=== PATIENT | female | born 1990 | race African-American/Black ===

== ENCOUNTER 2020-02-06 04:41 | Day surgery (SDC) | payer BC ==
[2020-02-05 12:53] VITALS: BMI 27.6
--- OUTSIDE RECORDS SUMMARY | 2020-02-06 04:45 | XMS ---
:1990 Author Organization [facility] Support Name Relationship Address Phone [facility] Unavailable [address] [place] [address] SLY GUTIERREZ [address] [phone] [place] [address] Re-disclosure Warning The records that you are about to access may contain information from federally- assisted alcohol or drug abuse programs. If such information is present, then the following federally mandated warning applies: This information has been disclosed to you from records protected by federal confidentiality rules (42 CFR part 2). The federal rules prohibit you from making any further disclosure of this information unless further disclosure is expressly permitted by the written consent of the person to whom it pertains or as otherwise permitted by 42 CFR part 2. A general authorization for the release of medical or other information is NOT sufficient for this purpose. The Federal rules restrict any use of the information to criminally investigate or prosecute any alcohol or drug abuse patient.The records that you are about to access may contain highly sensitive health information, the redisclosure of which is protected by Article 27-F of the [facility] Public Health law. If you continue you may haveaccess to information: Regarding HIV / AIDS; Provided by facilities licensed or operated by the [facility] Office of Mental Health; or Provided by the [facility] Office for People With Developmental Disabilities. If such information is present, then the following [facility] mandated warning applies: This information has been disclosed to you from confidential records which are protected by state law. State law prohibits you from making any further disclosure of this information without the specific written consent of the person to whom it pertains, or as otherwise permitted by law. Any unauthorized further disclosure in violation of state law may result in a fine or custodial sentence or both. A general authorization for the release of medical or other information is NOT sufficient authorization for further disclosure. Encounters Encounter Providers Location Date Indications Data Source(s ) Outpatient 04/11/2019 07:08:00 [facility] ([facility]) Outpatient 04/10/2019 06:35:00 [facility] ([facility]) Insurance Providers Payer name Policy type Policy ID Covered Covered constitution party's Policy P chi / Coverage constitution party ID relationship to [facility] [id number] SP [id number] [facility] 72 Results ID Date Data Source [id number] 02/02/2020 12:40:00 PM EDT [facility] Name Value Range Interpretation Description Data Sup porting Code Source(s) Document(s ) SARS [facility] coronavirus 2 RNA This lab was ordered by [facility] and reported by [facility]. Procedure
[2020-02-06] MEDS ORDERED: DEXAMETHASONE SOD PHOSPHATE 4 MG/1 ML VIAL ONE ×2 (08:29→09:20)
[2020-02-06] MEDS ORDERED: LIDOCAINE HCL 1%, 10 MG/ML (20ML VIAL) ONE ×2 (08:29→09:20)
[2020-02-06] MEDS ORDERED: BENZOIN/ALOE VERA/STORAX/TOLU 58 ML BOTTLE ONE (08:29)
[2020-02-06] MEDS ORDERED: BUPIVACAINE HCL 50 ML ONE (08:29)
[2020-02-06] MEDS ORDERED: MIDAZOLAM HCL 2 MG/2 ML SINGLE DOSE VIAL ONE (08:39)
[2020-02-06] MEDS ORDERED: KETOROLAC TROMETHAMINE 30 MG/1 ML VIAL ONE (08:39)
[2020-02-06] MEDS ORDERED: ceFAZolin SODIUM 1 GM VIAL ONE (08:39)
[2020-02-06] MEDS ORDERED: PROPOFOL 20 ML ONE ×2 (08:39)
[2020-02-06] MEDS ORDERED: BUPIVACAINE HCL 100 ML ONE (09:20)
[2020-02-06] MEDS ORDERED: ceFAZolin SODIUM 1 GM VIAL IVPB ONE (09:45)
[2020-02-06] MEDS ORDERED: BUPIVACAINE HCL/PF 0.5% (5 MG/ML) 30 ML VIAL IJ ONE (10:05)
[2020-02-06] MEDS ORDERED: LIDOCAINE HCL 1%, 10 MG/ML (20ML VIAL) INF ONE (10:05)
[2020-02-06] MEDS ORDERED: DEXAMETHASONE SOD PHOSPHATE 4 MG/1 ML VIAL IVPUSH ONE (10:08)
--- NOTE | 2020-02-06 10:18 | OP ---
Operative Note - Note: Operative Date: 02/06/20 Pre-Operative Diagnosis: Semi-rigid long hammer toe 2nd right foot Operation: Arthroplasty PIPJ 2nd toe right Findings: Hypertrophic bone and soft tissue Post-Operative Diagnosis: Same as Pre-op Surgeon: Haroon Lozada Qm Nurse: Airam Sellers Anesthesia: Local, MAC Specimens Removed: bone and soft tissue Estimated Blood Loss (mls): 1 Operative Report Dictated: Yes
[2020-02-06] MEDS ORDERED: ONDANSETRON 4 MG/2 ML VIAL IVPUSH PRN (10:22)
[2020-02-06] MEDS ORDERED: LACTATED RINGERS SOLUTION 1,000 ML IV SCH (10:30)
[2020-02-06 12:24] VITALS: BP 129/82; PULSE 64; TEMP 97.6
--- NOTE | 2020-02-07 08:15 | OP ---
DATE OF OPERATION: 02/06/2020 SURGEON: Airam Sellers DPM CO-SURGEON: Haroon Lozada DPM CARE TEAM ASSISTANT: Darek Hauser DPM, PGY-3 PREPROCEDURE DIAGNOSIS: Hammertoe deformity 2nd digit, right foot. POSTPROCEDURE DIAGNOSIS: Hammertoe deformity 2nd digit, right foot. PROCEDURE: 1. Arthroplasty 2nd digit, right foot. 2. Postoperative injection. PATHOLOGY: Bone and soft tissue. ANESTHESIA: Local with MAC. HEMOSTASIS: Pneumatic ankle tourniquet at 250 mmHg. ESTIMATED BLOOD LOSS: Minimal. MATERIALS: Betadine-soaked Adaptic, 4 x 4 gauze, Kerlix, Erik, 3-0 Vicryl and 4- 0 nylon. INJECTABLES: Preop 6 mL total of a 1:1 mixture of lidocaine 1% plain and Marcaine 0.5% plain. Postoperatively 5 mL total of 8:2 mix of Marcaine 0.5% plain and 4 mg dexamethasone. CONDITION: Stable. COMPLICATIONS: None. DESCRIPTION OF PROCEDURE: The patient was brought to the operating room and placed on the operating room table in the supine position. After appropriate timeout procedures, the administration of preoperative antibiotic and identification of the procedures, MAC anesthesia was administered by the anesthesia team. After adequate sedation, a local anesthetic block was administered to the right foot utilizing a 1:1 mixture of lidocaine 1% plain and 0.5% Marcaine plain for a total of 6 mL being used. A well-padded pneumatic ankle tourniquet was then applied to the right ankle. The right foot was then prepped and draped in usual aseptic manner. An Esmarch bandage was then utilized to exsanguinate the patient's right foot and the tourniquet was inflated to 250 mmHg. Surgery began in the following manner: Attention was directed to the 2nd digit of the right foot where 2 linear converging semi-elliptical longitudinal incisions were made dorsal to the proximal interphalangeal joint. A wedge of skin removed The incision was deepened through the subcutaneous tissues with care being taken to identify and retract all vital neurovascular structures. All bleeders were cauterized and ligated as necessary. At this time a transverse tenotomy and capsulotomy was performed to the proximal interphalangeal joint. The head of the proximal phalanx was then freed of its capsular and ligamentous attachments. The head was found to be hypertrophied on its dorsomedial and lateral aspects. Thus, utilizing an oscillating bone saw the head of the proximal phalanx was resected and then passed from the operative site. At this time all deformities were noticed to be reduced and the digit to be laid in a more corrected position. The surgical site was irrigated with normal saline bacitracin solution. The tendon was reapproximated with 3.0 Vicryl and the skin was reapproximated with 4-0 nylon. A postoperative injection was administered to the right foot utilizing 5 mL of an 8:2 mix of Marcaine 0.5% plain and dexamethasone 4 mg. Surgical site was dressed with Betadine-soaked Adaptic, a sterile 4 x 4 gauze, Choco and Erik. The pneumatic ankle tourniquet was then deflated and a prompt hyperemic response was noted to all digits of the right foot. The patient tolerated the procedure and anesthesia well and left the operating room to the recovery room with all vital signs stable and neurovascular status intact and capillary refill time was less than 3 seconds to all digits of the right foot. NORBERT Polanco/[id number] TEVIN
--- NOTE | 2020-02-07 17:47 | PATH ---
Surgical Pathology Report Patient Name: EVELYN GUTIERREZ Med. Rec. #: [id number] /Age/Gender: 1990 (Age: 29) / F Account: [id number] Location: [facility] Taken: 02/06/2020 Received: 02/06/2020 Reported: 02/07/2020 Physicians: Airam Sellers DPM Specimen(s) Received SKIN AND BONE 2ND TOE RIGHT Clinical History Hammertoe second digit right foot Final Diagnosis SKIN AND BONE SECOND TOE, RIGHT, EXCISION: PORTION OF BONE WITH FATTY MARROW SHOWING FOCAL DEGENERATIVE CHANGE. SEPARATE SEGMENT OF SKIN WITH NO SIGNIFICANT PATHOLOGIC CHANGE. Electronically Signed Elier Carrion M.D. Gross Description Received in formalin labeled "skin and bone second toe right," is a 1.1 x 0.6 x 0.6 cm jeong-yellow portion of bone. Also received within the same container is a 1.6 x 0.5 cm jeong, elliptical, unoriented portion of skin. Adolescent Medicine Specialist sections are submitted in one cassette, following decalcification. /02/06/2020 saudi/02/06/2020
== END 2020-02-06 12:50 | disposition home or self-care (01) ==
LOC: JASU-SURG 04:41
PROVIDERS: ATTEND Podiatrist Foot Surgery
PROC: 0QBQ0ZZ Excision of Right Toe Phalanx, Open Approach (ICD-10-PCS; principal; 2020-02-06 10:00)
DX: M20.41 Other hammer toe(s) (acquired), right foot (principal)
CPT/HCPCS: 73630-TC-RT-FY; 84703; 88304-TC; 88311-TC; 94760

== ENCOUNTER 2020-02-22 04:58 | Day surgery (SDC) | payer BC ==
--- OUTSIDE RECORDS SUMMARY | 2020-02-06 08:24 | XMS ---
:1990 Author Organization [facility] Support Name Relationship Address Phone [facility] Unavailable [address] [place] [address] SLY GUTIERREZ [address] [facility] [address] [place] [address] Re-disclosure Warning The records that you are [...] is protected by Article 27-F of the [facility] Public Health law. If you continue you may haveaccess to information: Regarding HIV / AIDS; Provided by facilities licensed or operated by the [facility] Office of Mental Health; or Provided by the [facility] Office for People With Developmental Disabilities. If such information is present, then the following [facility] mandated warning applies: This information has [...] law may result in a fine or chcf sentence or both. A general authorization for the release of medical or other information is NOT sufficient authorization for further disclosure. Encounters Encounter Providers Location Date Indications Data Source(s ) Outpatient 04/11/2019 07:08:00 [facility] ([facility]) Outpatient 04/10/2019 06:35:00 [facility] ([facility]) Insurance Providers Payer name Policy type Policy ID Covered Covered libertarian's Policy P chi / Coverage libertarian ID relationship to [facility] Inf [facility]mation [facility] [id number] SP [id number] [facility] 72 Results ID Date Data Source [id number] 02/02/2020 12:40:00 PM EDT [facility] Name Value Range Interpretation Description Data Sup porting Code Source(s) Document(s ) SARS [facility] coronavirus 2 RNA This lab was ordered by [facility] and reported by [facility]. Procedure
[2020-02-09 17:26] VITALS: BMI 27.6
[~2020-02-22 04:58] MED LIST: BACITRACIN 50,000 UNITS VIAL TP ONE; BUPIVACAINE HCL/PF 0.5% (5MG/ML) 10 ML VIAL IJ ONE; DEXAMETHASONE SOD PHOSPHATE 4 MG/1 ML VIAL NR ONE; LIDOCAINE HCL 1%, 10 MG/ML (20ML VIAL) NR ONE
--- OUTSIDE RECORDS SUMMARY | 2020-02-22 05:01 | XMS ---
:1990 Author Organization [facility] Support Name Relationship Address Phone [facility] Unavailable [address] [phone] [place] [address] SLY GUTIERREZ [address] [place] [address] Re-disclosure Warning The records that you are [...] is protected by Article 27-F of the [facility] Public Health law. If you continue you may haveaccess to information: Regarding HIV / AIDS; Provided by facilities licensed or operated by the [facility] Office of Mental Health; or Provided by the [facility] Office for People With Developmental Disabilities. If such information is present, then the following [facility] mandated warning applies: This information has been [...] law may result in a fine or intermediate sentence or both. A general authorization for [...] relationship to [facility] Inf [facility]mation [facility] [id number] SP [id number] [facility] 72 Results ID Date Data Source [id number] 02/02/2020 12:40:00 PM EDT [facility] Name Value Range Interpretation Description Data Sup porting Code Source(s) Document(s ) SARS [facility] coronavirus 2 RNA This lab was ordered by [facility] and reported by [facility]. Procedure
[2020-02-22] MEDS ORDERED: LIDOCAINE HCL 1%, 10 MG/ML (20ML VIAL) ONE (07:30)
[2020-02-22] MEDS ORDERED: DEXAMETHASONE SOD PHOSPHATE 4 MG/1 ML VIAL ONE ×2 (07:30→07:48)
[2020-02-22] MEDS ORDERED: BUPIVACAINE HCL 50 ML ONE ×2 (07:30→08:40)
[2020-02-22] MEDS ORDERED: MIDAZOLAM HCL 2 MG/2 ML SINGLE DOSE VIAL ONE (07:47)
[2020-02-22] MEDS ORDERED: PROPOFOL 20 ML ONE (07:47)
[2020-02-22] MEDS ORDERED: LIDOCAINE HCL/PF 2% SDV 5ML VIAL ONE (07:48)
[2020-02-22] MEDS ORDERED: ceFAZolin SODIUM 1 GM VIAL ONE (07:48)
[2020-02-22] MEDS ORDERED: KETOROLAC TROMETHAMINE 30 MG/1 ML VIAL ONE (07:48)
[2020-02-22] MEDS ORDERED: LIDOCAINE HCL 1%, 10 MG/ML (20ML VIAL) NR ONE ×2 (08:08→08:28)
[2020-02-22] MEDS ORDERED: BUPIVACAINE HCL/PF 0.5% (5MG/ML) 10 ML VIAL NR ONE (08:25)
[2020-02-22] MEDS ORDERED: BACITRACIN 50,000 UNITS VIAL TP ONE (08:50)
[2020-02-22] MEDS ORDERED: DEXAMETHASONE SOD PHOSPHATE 4 MG/1 ML VIAL NR ONE (09:01)
[2020-02-22] MEDS ORDERED: BUPIVACAINE HCL/PF 0.5% (5MG/ML) 10 ML VIAL IJ ONE (09:01)
[2020-02-22] MEDS ORDERED: oxyCODONE HCL 5 MG TABLET PO PRN ×2 (09:24)
[2020-02-22] MEDS ORDERED: ONDANSETRON 4 MG/2 ML VIAL IVPUSH PRN (09:24)
[2020-02-22] MEDS ORDERED: LACTATED RINGERS SOLUTION 1,000 ML IV SCH (09:30)
[2020-02-22 10:06] VITALS: TEMP 98.2
[2020-02-22 12:10] VITALS: BP 112/70; PULSE 66
--- NOTE | 2020-02-22 17:45 | OP ---
Operative Note - Note: Operative Date: 02/22/20 Pre-Operative Diagnosis: Hammer toe left 2nd toe Operation: Arthroplasty 2nd toe left Findings: hypertrophic bone and soft tissue Post-Operative Diagnosis: Same as Pre-op Surgeon: Haroon Lozada Waste Chopper: Airam Sellers Anesthesia: Local, MAC Specimens Removed: bone and soft tissue Estimated Blood Loss (mls): 2 Operative Report Dictated: Yes
--- NOTE | 2020-02-23 19:53 | PATH ---
Surgical Pathology Report Patient Name: EVELYN GUTIERREZ [facility]. Rec. #: [id number] /Age/Gender: 1990 (Age: 29) / F Account: [id number] Location: [facility] Taken: 02/22/2020 Received: 02/22/2020 Reported: 02/23/2020 Physicians: NORBERT Polanco DPM Specimen(s) Received BONE AND SKIN LEFT SECOND DIGIT FOOT Clinical History Hammertoe deformity left second digit Final Diagnosis BONE AND SKIN, SECOND DIGIT, FOOT, LEFT, HAMMERTOE CORRECTION: BONE WITH FATTY MARROW. SKIN WITHOUT SIGNIFICANT PATHOLOGIC FINDINGS. Electronically Signed Trinity Yanez M.D. Gross Description Received in formalin labeled "bone and skin left second digit foot" is an ellipse of jeong skin measuring 1.5 x 0.7 cm excised to a depth of 0.3 cm. No surface lesions are identified. Also received is a fragment of white-jeong bone measuring 1.0 x 0.5 x 0.5 cm. Both specimens are bisected and entirely submitted in one cassette after decalcification. MLSZ/02/23/2020 sanml/02/23/2020
--- NOTE | 2020-02-26 11:21 | OP ---
DATE OF OPERATION: 02/22/2020 PREOPERATIVE DIAGNOSIS: Hammertoe, left foot 2nd toe. POSTOPERATIVE DIAGNOSIS: Hammertoe, left foot 2nd toe. OPERATION: Proximal interphalangeal joint arthroplasty of digit, left. ANESTHESIA: Local with IV sedation. SURGEON: Airam Sellers DPM DOORS PREFITTER: Haroon Lozada DPM HEMOSTASIS: Pneumatic ankle tourniquet. ESTIMATED BLOOD LOSS: Minimal. MATERIALS: Vicryl and nylon suture. PATHOLOGY: Bone. DESCRIPTION OF OPERATION: The patient was brought to the operating room and placed on the operating table in the supine position. A pneumatic ankle tourniquet was then placed on the patient's left ankle. Following IV sedation, local anesthesia was obtained utilizing 5 mL of 0.5% Marcaine plain. The foot was then scrubbed, prepped, and draped in the usual aseptic manner. An Esmarch bandage was then utilized to exsanguinate the patient's left foot, and the tourniquet was inflated to 250 mmHg. Attention was directed to the 2nd digit where a 2-cm linear longitudinal incision was made over the dorsal aspect of the proximal interphalangeal joint of the digit. The incision was then deepened through the subcutaneous tissues with care to retract all neurovascular structures. All bleeders were cauterized and ligated. A transverse tenotomy and capsulotomy were performed to the proximal interphalangeal joint of the 2nd digit of the left foot. The head of the proximal phalanx was then freed of its soft tissue attachments. A sagittal bone cutter was then used to resect the head of the proximal phalanx at the surgical neck and then passed from the operating room table. The wounds were then flushed with copious amounts of sterile saline, and the extensor tendon was reapproximated with 3-0 Vicryl. Skin was reapproximated with 4-0 nylon. Upon completion of the procedure, a total of 2-3 mL of 4:1 mixture of 0.5% Marcaine and Decadron was infiltrated around the surgical site. The incision was dressed with Betadine-soaked Adaptic and covered with sterile compressive dressing of 4 x 4's and Choco. The tourniquet was then deflated, and immediate hyperemia returned to all digits. The foot was then Erik wrapped. The patient tolerated the procedure well and was transferred to the recovery room with all vital signs stable and vascular status intact to the feet. Following postoperative monitoring, the patient will be discharged and given instructions and prescriptions which were discussed prior to the surgery. NORBERT CROW DPM [id number]
== END 2020-02-22 11:15 | disposition home or self-care (01) ==
LOC: JASU-SURG 04:58
PROVIDERS: ATTEND Podiatrist Foot Surgery
PROC: 0SRQ0JZ Replacement of Left Toe Phalangeal Joint with Synthetic Substitute, Open Approach (ICD-10-PCS; principal; 2020-02-22 07:30)
DX: M20.42 Other hammer toe(s) (acquired), left foot (principal)
CPT/HCPCS: 73630-TC-LT; 84703; 88304-TC; 88311-TC; 94760